=== PATIENT | male | born 1995 | race Hispanic/Latino ===

== ENCOUNTER 2017-11-14 13:24 | Emergency (ER) | payer SELFPAY ==
[2017-11-14] MEDS ORDERED: MOTRIN PO ONE (15:21)
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
[2017-11-14] MEDS ORDERED: PERCOCET 5/325 PO ONE (17:15)
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
[2017-11-14] MEDS ORDERED: PERCOCET 5/325 ONE (20:05)
[2017-11-14] MEDS ORDERED: MOTRIN ONE (20:05)
[2017-11-14 20:40] VITALS: BP 127/86
== END 2017-11-14 20:39 | disposition home or self-care (01) ==
LOC: ED 13:24
DX: S05.11XA Contusion of eyeball and orbital tissues, right eye, initial encounter (principal); S09.8XXA Other specified injuries of head, initial encounter; J45.909 Unspecified asthma, uncomplicated; Z88.0 Allergy status to penicillin; Y08.89XA Assault by other specified means, initial encounter; Y93.89 Activity, other specified; Y92.89 Other specified places as the place of occurrence of the external cause; Y99.8 Other external cause status
CPT/HCPCS: 70450; 70486